=== PATIENT | female | born 1970 | race Caucasian/White ===

== ENCOUNTER 2018-08-02 15:09 | Emergency (ER) | payer MEDICAID ==
[~2018-08-02] VITALS: Wt 75.0 kg
--- NOTE | 2018-08-02 16:27 | ERD ---
ER Documentation Chief Complaint Chief Complaint RIGHT SHOULDER ABSCESS FOR THE PAST 4 DAYS. NO FEVERS HPI This is a 48-year-old female patient who presents to the emergency room with complaint of abscess to right shoulder that has increased in size and pain times 1 week. Denies fever. No limited range of motion to shoulder joint. ROS All systems reviewed and are negative except as per history of present illness. Medications Home Meds Active Scripts Ibuprofen* (Ibuprofen*) 400 Mg Tablet, 400 MG PO Q6H PRN for PAIN for 10 Days, #30 TAB Prov:OSCAR GUDINO [employer] 08/02/18 Sulfamethoxazole/Trimethoprim* (Bactrim Ds* Tablet) 1 Each Tablet, 1 TAB PO BID for 7 Days, TAB Prov:OSCAR GUDINO [employer] 08/02/18 Allergies Allergies: Coded Allergies: No Known Allergy (Unverified , 08/02/18) Physical Exam Vitals Vital Signs Date Temp Pulse Resp B/P (MAP) Pulse Ox O2 O2 Flow FiO2 Time Delivery Rate 08/02/18 98.9 78 18 153/85 98 15:14 (107) Physical Exam Const: No acute distress Head: Atraumatic Eyes: Normal Conjunctiva ENT: Normal External Ears, Nose and Mouth. Neck: Full range of motion. No meningismus. Resp: Clear to auscultation bilaterally Cardio: Regular rate and rhythm, no murmurs Abd: Soft, non tender, non distended. Normal bowel sounds Skin: No petechiae or rashes. 3cm x 3 cm flocculent abscess to right anterior shoulder. Back: No midline or flank tenderness Ext: No cyanosis, or edema Neur: Awake and alert Psych: Normal Mood and Affect Results 24 hrs Current Medications Medications Dose Sig/Garfield Start Time Status Last (Trade) Ordered Route PRN Stop Time Admin Dose Reason Admin Lidocaine 20 ml ONCE ONCE 08/02/18 DC (Xylocaine INJ 16:30 2% (Mdv) 20 08/02/18 16:31 ml) Procedures/MDM Is a 48-year-old female who presents to the emergency room with complaint of abscess to right shoulder increasing in size and pain times 1 week. ED COURSE: The patient was stable throughout ED course. PROCEDURES: Abscess Incision and Drainage with irrigation by me: Location: Right anterior shoulder Anesthesia: Local 2% Lidocaine Technique: Irrigated. Disrupted loculations w/ instrumentation Packing: Single iodoform gauze strip Complications: Neurovascularly intact post procedure 48 hour wound check. Scar minimization instructions given. MEDICATIONS GIVEN: [None.] Patient tolerated medication well with no adverse reactions. Patient reported improvement in pain. MDM: Right shoulder abscess drained per customary method of I&D, pt tolerated well. This patients soft tissue infection appears to be appropriate for outpatient tr eatment with close follow-up for reevaluation by a clinician within 24-48 hours. A serious, rapidly progressive infectious process is unlikely based upon the patients presentation and appearance of the infection. Antibiotic treatment has been initiated here and response to treatment will be based on reassessment at close follow-up. The patient has been instructed on signs and symptoms of acute progression of infection and to return immediately if any of these occur. DISPOSITION: The patient has been discharge home to follow-up with instructions on wound care, use of antibiotics, and need to return to ED or PMD in 3 days for reevaluation. Departure Condition: Stable Patient Instructions: Abscess, Incision And Drainage Referrals: [facility] Additional Instructions: Thank you very much for allowing us to participate in your care. Your health and safety is our top priority at [facility]. Call your primary care doctor TOMORROW for an appointment during the next 2-4 days and bring all the information and medications prescribed. Have prescriptions filled and follow precisely the directions on the label. If the symptoms get worse and your provider is unavailable, return to the Emergency Department immediately. Keep area clean and dry. Change outer dressing daily. Return to this ER or primary care doctor in 3 days for wound check. Complete entire course of antibiotics. Use ibuprofen or Tylenol for comfort. Return to the emergency room for heavy drainage, fever, pain unrelieved with ibuprofen or Tylenol. OSCAR GUDINO NP Aug 02, 2018 16:27
[2018-08-02] MEDS ORDERED: SULF1TAB31 PO (16:30)
[2018-08-02] MEDS ORDERED: LIDOCAINE 2% (MDV) 20 ML INJ INJ ONE (16:30)
[2018-08-02] MEDS ORDERED: IBUP-1541 PO (17:04)
== END 2018-08-02 17:17 | disposition home or self-care (01) ==
LOC: FTE 15:09
DX: L02.413 Cutaneous abscess of right upper limb (principal)
CPT/HCPCS: 10060; Z7502; Z7610